=== PATIENT | male | born 1970 | race Two or more races ===

== ENCOUNTER 2019-11-05 08:40 | Emergency (ER) | payer OTHER ==
[~2019-11-05] VITALS: Ht 170.2 cm; Wt 90.7 kg
[2019-11-05] MEDS ORDERED: KETO10TA2 PO (10:39)
== END 2019-11-05 11:05 | disposition home or self-care (01) ==
LOC: ER 08:40
DX: S90.02XA Contusion of left ankle, initial encounter (principal); S90.32XA Contusion of left foot, initial encounter; S80.02XA Contusion of left knee, initial encounter; W18.09XA Striking against other object with subsequent fall, initial encounter; Y93.02 Activity, running; Y92.098 Other place in other non-institutional residence as the place of occurrence of the external cause; Y99.8 Other external cause status

== ENCOUNTER 2022-04-07 08:49 | Outpatient (CLI) | payer OTHER ==
[~2022-04-07 08:49] MED LIST: KETO10TA2 PO
== END 2022-04-07 08:51 | disposition home or self-care (01) ==
LOC: LAB 08:49
PROVIDERS: ATTEND Internal Medicine Hematology & Oncology
DX: D72.818 Other decreased white blood cell count (principal); D51.3 Other dietary vitamin B12 deficiency anemia; Q31.8 Other congenital malformations of larynx; D50.8 Other iron deficiency anemias; R79.9 Abnormal finding of blood chemistry, unspecified; I10 Essential (primary) hypertension; R74.02 Elevation of levels of lactic acid dehydrogenase [LDH]; K76.89 Other specified diseases of liver; E03.8 Other specified hypothyroidism; D51.8 Other vitamin B12 deficiency anemias; D51.1 Vitamin B12 deficiency anemia due to selective vitamin B12 malabsorption with proteinuria; D51.0 Vitamin B12 deficiency anemia due to intrinsic factor deficiency; E06.3 Autoimmune thyroiditis; R97.0 Elevated carcinoembryonic antigen [CEA]; R97.8 Other abnormal tumor markers

== ENCOUNTER 2023-02-03 14:40 | Outpatient (CLI) | payer OTHER | END 2023-02-03 14:45 | disposition home or self-care (01) | LOC: RAD 14:40 | PROVIDERS: ATTEND Internal Medicine | DX: Z01.818 Encounter for other preprocedural examination (principal) ==